=== PATIENT | male | born 1990 | race Two or more races ===

== ENCOUNTER 2021-05-07 07:47 | Outpatient (CLI) | payer OTHER | END 2021-05-07 15:00 | disposition home or self-care (01) | LOC: LAB 07:47 | DX: Z20.818 Contact with and (suspected) exposure to other bacterial communicable diseases (principal); Z20.828 Contact with and (suspected) exposure to other viral communicable diseases ==

== ENCOUNTER 2024-06-08 08:58 | Outpatient (CLI) | payer OTHER | END 2024-06-08 09:28 | disposition home or self-care (01) | LOC: SONOGRAMA 08:58 | PROVIDERS: ATTEND Chiropractor | DX: R22.2 Localized swelling, mass and lump, trunk (principal) ==